=== PATIENT | female | born 1940 | race Two or more races ===

== ENCOUNTER 2017-10-18 14:04 | Day surgery (SDC) | payer BC, MEDICARE ==
[2017-10-12 11:01] LABS: Basophils # (auto) 0.1 uL; Basophils % (auto) 0.5 % (0.0-2.0); Eosinophils # (auto) 0.1 uL; Eosinophils % (auto) 1.3 % (0.0-7.0); Hematocrit 46.4 % (36.0-46.0); Hemoglobin 15.9 g/dL (12.2-16.2); Lymphocytes # (auto) 2.1 uL; Lymphocytes % (auto) 21.3 % (10.0-50.0); Mean Corpuscular Hemoglobin 32.9 pg (28.0-32.0); Mean Corpuscular Hgb Conc. 34.3 g/dL (32.0-36.0); Mean Corpuscular Volume 95.8 fL (80.0-100.0); Monocytes # (auto) 0.8 uL; Monocytes % (auto) 8.2 % (0.0-12.0); Neutrophils # (auto) 6.7 uL; Neutrophils % (auto) 68.7 % (37.0-80.0); Platelet Count (auto) 202 10^3/uL (140-450); Red Blood Cells 4.85 10^6/uL (4.0-5.20); Red Cell Distribution Width 13.8 % (11.8-14.3); White Blood Cell 9.7 10^3/uL (4.4-10.8)
[2017-10-12 11:09] LABS: Urine Bacteria MOD /hpf (None Seen); Urine Blood Negative /uL (Negative); Urine Specific Gravity 1.017 (1.001-1.035); Urine WBC 3 /hpf (0 - 5)
[2017-10-12 11:16] LABS: Calcium 8.3 mg/dL (8.5-10.1); INR 0.94 (0.9-1.15); Partial Thromboplastin Time 27.9 sec (23.78-33.04); Potassium 3.9 mmol/L (3.5-5.1); Prothrombin Time 10.1 sec (9.27-12.13)
[~2017-10-18] VITALS: Ht 170.2 cm; Wt 81.6 kg
[~2017-10-18 14:04] MED LIST: LEVO112T4 PO; LISI-646 PO; METO25TA5 PO
[2017-10-18] MEDS ORDERED: ceFAZolin 1GM/50ML 50 ML IV ONE (14:41)
[2017-10-18] MEDS ORDERED: diphenhdrAMINE HCL 50 MG/1 ML VL ONE (17:46)
[2017-10-18] MEDS ORDERED: PROPOFOL 10 MG/ML 20 ML IV ONE (17:47)
[2017-10-18] MEDS ORDERED: ceFAZolin 1GM VL ONE ×2 (17:47→17:50)
[2017-10-18] MEDS ORDERED: fentaNYL CITRATE 100 MCG/2 ML VL ONE ×2 (17:47→18:48)
[2017-10-18] MEDS ORDERED: ONDANSETRON HCL 4 MG/2 ML VIAL ONE (17:47)
[2017-10-18] MEDS ORDERED: METOCLOPRAMIDE HCL 5MG/ml INJ 2ml VIAL ONE (17:47)
[2017-10-18] MEDS ORDERED: LIDOCAINE 2% (LOCAL ANESTH.) PF 5ml SDV ONE ×2 (17:47→17:58)
[2017-10-18] MEDS ORDERED: CONJ ESTROGENS 0.625MG/GM VAG CRM 30GM PV ONE (17:48)
[2017-10-18] MEDS ORDERED: ONDANSETRON HCL 4 MG/2 ML VIAL IV PRN (18:00)
[2017-10-18] MEDS ORDERED: LACTATED RINGER'S 1,000 ML IV SCH (18:00)
[2017-10-18] MEDS ORDERED: KETOROLAC TROMETH 30 MG/ML 1ML VIAL ONE (19:27)
[2017-10-18] MEDS ORDERED: ePHEDrine SULFATE 50 MG/ML AMP IV PRN (19:45)
[2017-10-18] MEDS ORDERED: hydrALAZINE HCL 20 MG/ML VL IV PRN (19:45)
[2017-10-18] MEDS ORDERED: NALOXONE HCL 0.4 MG/ML VIAL IV PRN (19:45)
[2017-10-18] MEDS ORDERED: ONDANSETRON HCL 4 MG/2 ML VIAL IV ONE (19:45)
[2017-10-18] MEDS ORDERED: LABETALOL HCL 5 MG/ML 4ML SYRINGE IV PRN (19:45)
[2017-10-18] MEDS ORDERED: HYDROmorphone HCL 2 MG/ML VL IV PRN (19:45)
[2017-10-18 20:37] VITALS: BP 158/66
== END 2017-10-18 20:47 | disposition home or self-care (01) ==
LOC: SUR 14:04
PROVIDERS: ATTEND Obstetrics & Gynecology
DX: D28.1 Benign neoplasm of vagina (principal); N81.10 Cystocele, unspecified; I34.1 Nonrheumatic mitral (valve) prolapse; E89.0 Postprocedural hypothyroidism; I10 Essential (primary) hypertension; E11.9 Type 2 diabetes mellitus without complications; E66.9 Obesity, unspecified; Z79.899 Other long term (current) drug therapy; Z90.49 Acquired absence of other specified parts of digestive tract; Z90.710 Acquired absence of both cervix and uterus; Z96.651 Presence of right artificial knee joint; Z98.49 Cataract extraction status, unspecified eye
CPT/HCPCS: 36415; 57106; 57240; 57288; 80048; 81001; 85025; 85610; 85730; 87086; 88302; C1781; J0690; J1200; J1885; J2001; J2405; J2704; J2765; J3010